=== PATIENT | female | born 1965 | race African-American/Black ===

== ENCOUNTER 2017-09-11 09:36 | Outpatient (CLI) | payer BC ==
--- NOTE | 2017-09-11 09:52 | RAD ---
RIGHT WRIST THREE VIEWS: History: Wrist pain. FINDINGS: There are no signs of fracture. Joint spaces are fairly well preserved. No evidence of any significan t arthritic change. IMPRESSION: Unremarkable right wrist. POS: [facility]
--- NOTE | 2017-09-11 09:53 | RAD ---
LEFT SHOULDER THREE VIEWS: History: Shoulder pain. FINDINGS: AC and glenohumeral joints appear fairly unremarkable with some minimal AC joint arthritic change. No signs of fracture. No other findings. IMPRESSION: Unremarkable left shoulder. POS: [facility]
== END 2017-09-11 09:37 | disposition home or self-care (01) ==
LOC: RAD-FRANK 09:36
PROVIDERS: ATTEND Internal Medicine
DX: M25.531 Pain in right wrist (principal); M25.512 Pain in left shoulder

== ENCOUNTER 2018-06-11 22:22 | Emergency (ER) | payer BC ==
[2018-06-11] MEDS ORDERED: Lidocaine Viscous Sol 2% 15 ml UD Cup ONE (23:13)
[2018-06-11] MEDS ORDERED: Ondansetron ODT 8 MG TAB ONE (23:13)
[2018-06-11] MEDS ORDERED: Mag-Al 1200 mg/1200 mg/30 ML UDCUP ONE (23:13)
== END 2018-06-12 00:43 | disposition home or self-care (01) ==
LOC: ERS 22:22
DX: T65.891A Toxic effect of other specified substances, accidental (unintentional), initial encounter (principal); R07.9 Chest pain, unspecified; R11.2 Nausea with vomiting, unspecified; E11.9 Type 2 diabetes mellitus without complications; E78.5 Hyperlipidemia, unspecified; F32.9 Major depressive disorder, single episode, unspecified; Z79.84 Long term (current) use of oral hypoglycemic drugs; Z79.899 Other long term (current) drug therapy
CPT/HCPCS: 99283

== ENCOUNTER 2021-04-10 22:41 | Observation (INO) | payer BC, OTHER, SELFPAY ==
[2021-04-11 05:08] VITALS: BMI 27.6
[2021-04-11 12:33] VITALS: BP 132/62; TEMP 97.7
== END 2021-04-11 17:42 | disposition home or self-care (01) ==
LOC: ERS 22:41 → ERHOLD 04-11 00:58 → 2SW 04-11 04:42
PROVIDERS: ADMIT Internal Medicine; ATTEND Internal Medicine
DX: R07.89 Other chest pain (principal); N30.00 Acute cystitis without hematuria; I12.9 Hypertensive chronic kidney disease with stage 1 through stage 4 chronic kidney disease, or unspecified chronic kidney disease; E11.22 Type 2 diabetes mellitus with diabetic chronic kidney disease; N18.2 Chronic kidney disease, stage 2 (mild); D63.1 Anemia in chronic kidney disease; E78.5 Hyperlipidemia, unspecified; F41.9 Anxiety disorder, unspecified; F32.9 Major depressive disorder, single episode, unspecified; Z79.84 Long term (current) use of oral hypoglycemic drugs; Z79.899 Other long term (current) drug therapy
CPT/HCPCS: 36415; 36416; 71045; 78452; 80053; 80061; 81001; 82550; 84484; 85025; 85379; 93005; 93017; G0378; J0153